=== PATIENT | female | born 1985 | race American Indian/Alaskan Native ===

== ENCOUNTER 2016-06-06 14:40 | Emergency (ER) | payer SELFPAY ==
[2016-06-06 16:02] VITALS: BP 118/76
== END 2016-06-06 18:30 | disposition left against medical advice (07) ==
LOC: ED 14:40
DX: L29.9 Pruritus, unspecified (principal); Z53.21 Procedure and treatment not carried out due to patient leaving prior to being seen by health care provider

== ENCOUNTER 2016-12-11 09:58 | Outpatient (CLI) | payer MEDICAID ==
--- NOTE | 2016-12-12 10:59 | Magnetic Resonance Report ---
MRI PELVIS WITHOUTAND WITH CONTRAST: 12/11/16 09:58:00 CLINICAL: Leiomyoma. COMPARISON :None. TECHNIQUE: Sagittal, coronal and axial T1 and T2 fat sat sequences plus sagittal, coronal and axial postcontrast T1 fat sequences on a 1.5 Jael magnet. 15 cc of Multihance was injected intravenously for contrast portion of exam the consent was obtained prior to the administration of contrast. Postcontrast scans were obtained at 60 seconds, 90 seconds, 120 seconds and 150 seconds. FINDINGS: Normal uterine contour, size and signal. No uterine mass or fibroid identified.The uterus measures 8.5 x 4.1 x 5.2 cm. The endometrium is normal and measures 4.8 mmAP thickness. Normal ovaries with a dominant 2.7 cm follicle of the left ovary. Small follicles in the right ovary.The right ovary measures 2.4 x 1.9 x 2.0 cm. The left ovary measures 3.3 x 2.7 x 2.7 cm. No adnexal mass. No free fluid. Normal urinary bladder and rectum. Normal bones and soft tissues. IMPRESSION: 1. Normal uterus and endometrium with no uterine fibroids identified. 2. Normal ovaries.
== END 2016-12-11 09:59 | disposition home or self-care (01) ==
LOC: SPVIMAG 09:58
PROVIDERS: ATTEND Radiology Diagnostic Radiology
DX: D25.1 Intramural leiomyoma of uterus (principal)
CPT/HCPCS: 72197; A9577

== ENCOUNTER 2018-06-11 21:26 | Emergency (ER) | payer MEDICAID ==
[2018-06-11] MEDS ORDERED: DUONEB *Not for PRN Use IH ONE ×2 (22:04→22:13)
[2018-06-11 22:13] VITALS: BP 139/76
--- NOTE | 2018-06-11 22:57 | XRay Report ---
FINAL REPORT EXAM: XR CHEST ROUTINE 2V HISTORY: cough and fever TECHNIQUE: Two view chest PA and lateral PRIORS: None. FINDINGS: Cardiac and mediastinal contours are unremarkable. No focal pulmonary infiltrate is identified. No pleural fluid collection seen. Pulmonary vasculature is unremarkable. IMPRESSION: Negative two-view chest
--- NOTE | 2018-06-12 00:47 | Emergency Department Report ---
- General Chief Complaint: Adult Asthma Stated Complaint: COUGH, CHEST PAIN Time Seen by Provider: 06/12/18 00:29 Source: patient Mode of arrival: Ambulatory Limitations: No Limitations - History of Present Illness MD Complaint: fever, cough -: days(s) (2) Severity: mild Consistency: constant Improves With: nothing Worsens With: nothing Associated Symptoms: fever, cough, chest pain (with cough) - Related Data Previous Rx's Medication Instructions Recorded Last Taken Type Amoxicillin 500 mg PO TID 10 Days #30 capsule 03/13/18 Unknown Rx Dexamethasone [Decadron] 4 mg PO Q12H 3 Days #6 tablet 03/13/18 Unknown Rx Ibuprofen 800 mg PO TID PRN #30 tablet 03/13/18 Unknown Rx ALBUTEROL Inhaler(NF) [VENTOLIN 1 puff IH Q4HR PRN #1 inha 06/12/18 Unknown Rx Inhaler(NF)] Benzonatate [Tessalon Perles] 100 mg PO Q8HR PRN #20 capsule 06/12/18 Unknown Rx Naproxen [Naprosyn] 500 mg PO BID #20 tablet 06/12/18 Unknown Rx predniSONE [Prednisone] 50 mg PO DAILY #5 tablet 06/12/18 Unknown Rx Allergies Allergy/AdvReac Type Severity Reaction Status Date / Time No Known Allergies Allergy Verified 03/13/18 00:45 ED Review of Systems ROS: Stated complaint: COUGH, CHEST PAIN Other details as noted in HPI Comment: All other systems reviewed and negative Constitutional: fever Respiratory: cough, wheezing Cardiovascular: chest pain (with cough) ED Past Medical Hx - Past Medical History Hx Asthma: Yes Additional medical history: Obesity - Surgical History Past Surgical History?: No - Social History Smoking Status: Never Smoker Substance Use Type: None - Medications Home Medications: Home Medications Medication Instructions Recorded Confirmed Last Taken Type Amoxicillin 500 mg PO TID 10 Days #30 capsule 03/13/18 Unknown Rx Dexamethasone [Decadron] 4 mg PO Q12H 3 Days #6 tablet 03/13/18 Unknown Rx Ibuprofen 800 mg PO TID PRN #30 tablet 03/13/18 Unknown Rx ALBUTEROL Inhaler(NF) [VENTOLIN 1 puff IH Q4HR PRN #1 inha 06/12/18 Unknown Rx Inhaler(NF)] Benzonatate [Tessalon Perles] 100 mg PO Q8HR PRN #20 capsule 06/12/18 Unknown Rx Naproxen [Naprosyn] 500 mg PO BID #20 tablet 06/12/18 Unknown Rx predniSONE [Prednisone] 50 mg PO DAILY #5 tablet 06/12/18 Unknown Rx ED Physical Exam - General Limitations: No Limitations General appearance: alert, in no apparent distress - Head Head exam: Present: atraumatic, normocephalic - Eye Eye exam: Present: normal appearance - ENT ENT exam: Present: mucous membranes moist - Neck Neck exam: Present: normal inspection - Respiratory Respiratory exam: Present: normal lung sounds bilaterally, chest wall tenderness. Absent: respiratory distress, wheezes - Cardiovascular Cardiovascular Exam: Present: regular rate, normal rhythm - GI/Abdominal GI/Abdominal exam: Present: soft. Absent: distended, tenderness - Extremities Exam Extremities exam: Present: normal inspection - Neurological Exam Neurological exam: Present: alert, oriented X3 - Psychiatric Psychiatric exam: Present: normal affect, normal mood - Skin Skin exam: Present: warm, dry, intact, normal color. Absent: rash ED Course Vital Signs 06/11/18 06/12/18 22:09 00:59 Temperature 99.2 F Pulse Rate 84 Respiratory 18 18 Rate Blood Pressure 139/76 O2 Sat by Pulse 99 Oximetry ED Medical Decision Making - EKG Data -: EKG Interpreted by [facility] EKG shows normal: sinus rhythm, axis, intervals, QRS complexes, ST-T waves Rate: normal - EKG Data Interpretation: no acute changes - Radiology Data Radiology results: report reviewed, image reviewed - Differential Diagnosis asthma, URI, pneumonia Critical care attestation.: If time is entered above; I have spent that time in minutes in the direct care of this critically ill patient, excluding procedure time. ED Disposition Clinical Impression: URI (upper respiratory infection) Disposition: DC-01 TO HOME OR SELFCARE Is pt being admited?: No Condition: Stable Instructions: Upper Respiratory Infection (ED) Prescriptions: ALBUTEROL Inhaler(NF) [VENTOLIN Inhaler(NF)] 1 puff IH Q4HR PRN #1 inha PRN Reason: Wheezing Benzonatate [Tessalon Perles] 100 mg PO Q8HR PRN #20 capsule PRN Reason: Cough Naproxen [Naprosyn] 500 mg PO BID #20 tablet predniSONE [Prednisone] 50 mg PO DAILY #5 tablet Referrals: CARRIE YUEN MD [Primary Care Provider] - 3-5 Days [facility] [Provider Group] - 3-5 Days Time of Disposition: 00:47
== END 2018-06-12 01:02 | disposition home or self-care (01) ==
LOC: ED 21:26
DX: J06.9 Acute upper respiratory infection, unspecified (principal); J45.909 Unspecified asthma, uncomplicated; E66.9 Obesity, unspecified
CPT/HCPCS: 71046; 93005; 93010; 94640

== ENCOUNTER 2019-04-09 17:56 | Emergency (ER) | payer MEDICAID ==
--- NOTE | 2019-04-09 18:50 | Event Note ---
ED Screening Note ED Screening Note: c/o dry cough, wheezing that began this morning +itchy, dry throat states she does not have her asthma medications, states she ran out This initial assessment/diagnostic orders/clinical plan/treatment(s) is/are subject to change based on patients health status, clinical progression and re- assessment by fellow clinical providers in the ED. Further treatment and workup at subsequent clinical providers discretion. Patient/guardian urged not to elope from the ED as their condition may be serious if not clinically assessed and managed.
[2019-04-09] MEDS ORDERED: IPRATROPIUM/ALBUTEROL SULFATE 3 ML AMPUL.NEB IH ONE (20:33)
--- NOTE | 2019-04-09 20:34 | Emergency Department Report ---
ED General Adult HPI - General Chief complaint: Dyspnea/Respdistress Stated complaint: COUGH WHEEZING CHEST TIGHTNESS Time Seen by Provider: 04/09/19 18:48 Source: patient Mode of arrival: Ambulatory Limitations: No Limitations - History of Present Illness Initial comments: 43-year-old -[place] female patient with history of asthma presents with complaints of chest tightness, cough, and wheezing starting this morning. Patient states this feels like her asthma and that she has been out of her inhaler for a couple of weeks. She denies any chest pain, leg pain/swelling, recent long travel, history of DVT/PE, hormone therapy, or recent surgeries. Patient states cough is dry and nonproductive and she denies any fevers/chills/sweats or history of pneumonia. -: Sudden - Related Data Previous Rx's Medication Instructions Recorded Last Taken Type Amoxicillin 500 mg PO TID 10 Days #30 capsule 03/13/18 Unknown Rx Ibuprofen 800 mg PO TID PRN #30 tablet 03/13/18 Unknown Rx dexAMETHasone [Decadron] 4 mg PO Q12H 3 Days #6 tablet 03/13/18 Unknown Rx ALBUTEROL Inhaler(NF) [VENTOLIN 1 puff IH Q4HR PRN #1 inha 06/12/18 Unknown Rx Inhaler(NF)] Benzonatate [Tessalon Perles] 100 mg PO Q8HR PRN #20 capsule 06/12/18 Unknown Rx Naproxen [Naprosyn] 500 mg PO BID #20 tablet 06/12/18 Unknown Rx predniSONE [Prednisone] 50 mg PO DAILY #5 tablet 06/12/18 Unknown Rx ALBUTEROL Inhaler (OR & NICU) 2 puff IH QID PRN #8.5 gram 04/09/19 Unknown Rx [ProAir HFA Inhaler] predniSONE [Deltasone] 20 mg PO BID 2 Days #4 tab 04/09/19 Unknown Rx Allergies Allergy/AdvReac Type Severity Reaction Status Date / Time No Known Allergies Allergy Verified 03/13/18 00:45 ED Review of Systems ROS: Stated complaint: COUGH WHEEZING CHEST TIGHTNESS Other details as noted in HPI Comment: All other systems reviewed and negative Respiratory: see HPI ED Past Medical Hx - Past Medical History Hx Asthma: Yes Additional medical history: Obesity - Surgical History Past Surgical History?: No - Social History Smoking Status: Never Smoker Substance Use Type: Alcohol, Prescribed - Medications Home Medications: Home Medications Medication Instructions Recorded Confirmed Last Taken Type Amoxicillin 500 mg PO TID 10 Days #30 capsule 03/13/18 Unknown Rx Ibuprofen 800 mg PO TID PRN #30 tablet 03/13/18 Unknown Rx dexAMETHasone [Decadron] 4 mg PO Q12H 3 Days #6 tablet 03/13/18 Unknown Rx ALBUTEROL Inhaler(NF) [VENTOLIN 1 puff IH Q4HR PRN #1 inha 06/12/18 Unknown Rx Inhaler(NF)] Benzonatate [Tessalon Perles] 100 mg PO Q8HR PRN #20 capsule 06/12/18 Unknown Rx Naproxen [Naprosyn] 500 mg PO BID #20 tablet 06/12/18 Unknown Rx predniSONE [Prednisone] 50 mg PO DAILY #5 tablet 06/12/18 Unknown Rx ALBUTEROL Inhaler (OR & NICU) 2 puff IH QID PRN #8.5 gram 04/09/19 Unknown Rx [ProAir HFA Inhaler] predniSONE [Deltasone] 20 mg PO BID 2 Days #4 tab 04/09/19 Unknown Rx ED Physical Exam - General Limitations: No Limitations General appearance: alert, in no apparent distress - Head Head exam: Present: atraumatic, normocephalic - Eye Eye exam: Present: normal appearance. Absent: scleral icterus - Neck Neck exam: Present: normal inspection, full ROM. Absent: tenderness - Respiratory Respiratory exam: Present: normal lung sounds bilaterally, wheezes (mild bilaterally). Absent: respiratory distress, rales, rhonchi, stridor, chest wall tenderness, accessory muscle use - Cardiovascular Cardiovascular Exam: Present: regular rate, normal rhythm. Absent: systolic murmur, diastolic murmur, rubs, gallop - GI/Abdominal GI/Abdominal exam: Present: soft, normal bowel sounds. Absent: tenderness - Extremities Exam Extremities exam: Absent: pedal edema, joint swelling, calf tenderness - Neurological Exam Neurological exam: Present: alert, oriented X3 - Psychiatric Psychiatric exam: Present: normal affect, normal mood ED Course Vital Signs 04/09/19 04/09/19 18:02 21:00 Temperature 98.7 F Pulse Rate 95 H Pulse Rate [ 91 H Bilateral Throughout] Respiratory 19 Rate Respiratory 18 Rate [Bilateral Throughout] Blood Pressure 114/75 O2 Sat by Pulse 98 Oximetry ED Medical Decision Making - Medical Decision Making 33-year-old female patient here with complaints of asthma exacerbation today. She states this does feel like her normal asthma and that she has an out of her inhaler for a couple weeks. Patient given 1 treatment of DuoNeb and states that her symptoms have completely resolved. Will discharge home with albuterol refill and primary care follow-up. Discussed very strict return precautions in detail with patient who states understanding. Critical care attestation.: If time is entered above; I have spent that time in minutes in the direct care of this critically ill patient, excluding procedure time. ED Disposition Clinical Impression: Asthma exacerbation Qualifiers: Asthma severity: mild Asthma persistence: intermittent Qualified Code(s): J45.21 - Mild intermittent asthma with (acute) exacerbation Disposition: TO HOME OR SELFCARE Is pt being admited?: No Condition: Stable Instructions: Asthma (ED) Prescriptions: predniSONE [Deltasone] 20 mg PO BID 2 Days #4 tab ALBUTEROL Inhaler (OR & NICU) [ProAir HFA Inhaler] 2 puff IH QID PRN #8.5 gram PRN Reason: Shortness Of Breath Referrals: MADAN HOLT MD [Referring] - 3-5 Days
[2019-04-10 01:24] VITALS: BP 135/82
== END 2019-04-09 22:55 | disposition home or self-care (01) ==
LOC: ED 17:56
DX: J45.21 Mild intermittent asthma with (acute) exacerbation (principal); Z79.899 Other long term (current) drug therapy
CPT/HCPCS: 94640; 94644; 99282

== ENCOUNTER 2019-05-23 13:31 | Emergency (ER) | payer MEDICAID ==
[2019-05-23 13:36] VITALS: BP 122/76
--- NOTE | 2019-05-23 13:36 | Emergency Department Report ---
Blank Doc - Documentation Documentation: 33-year-old female that presents with n/v and abdominal pain. This initial assessment/diagnostic orders/clinical plan/treatment(s) is/are subject to change based on patient's health status, clinical progression and re- assessment by fellow clinical providers in the ED. Further treatment and workup at subsequent clinical providers discretion. Patient/guardians urged not to elope from the ED as their condition may be serious if not clinically assessed and managed. Initial orders include: 1- Patient sent to [facility] for further evaluation and treatment 2- labs 3- UA
[2019-05-23 14:24] LABS: Basophils % (Auto) 0.4 % (0.0-1.8); Eosinophils % (Auto) 0.6 % (0.0-4.3); Hematocrit 35.9 % (30.3-42.9); Hemoglobin 11.8 gm/dl (10.1-14.3); Lymphocytes # (Auto) 2.7 K/mm3 (1.2-5.4); Lymphocytes % (Auto) 44.3 % (13.4-35.0); Mean Corpuscular HGB Conc 33 % (30-34); Mean Corpuscular Volume 86 fl (79-97); Monocytes # (Auto) 0.5 K/mm3 (0.0-0.8); Monocytes % (Auto) 7.8 % (0.0-7.3); Platelet Count 282 K/mm3 (140-440); Red Blood Count 4.18 M/mm3 (3.65-5.03); Red Cell Distribution Width 14.4 % (13.2-15.2)
[2019-05-23 14:42] LABS: Alanine Aminotransferase 12 units/L (7-56); Albumin 3.5 g/dL (3.9-5); BUN/Creatinine Ratio 16; Blood Urea Nitrogen 8 mg/dL (7-17); Calcium 8.9 mg/dL (8.4-10.2); Hemolysis Index 8
--- NOTE | 2019-05-23 18:44 | Emergency Department Report ---
HPI - General Chief Complaint: Abdominal Pain Time Seen by Provider: 05/23/19 13:35 - HPI HPI: 33-year-old female presents to the emergency department with a complaint of a 2-3 day history of some lower abdominal cramping as well as some nausea and vomiting. She denies any past medical history. She has not taken anything for her symptoms prior to presentation. By the time my shift had started the patient has already had some blood work completed that shows the patient to be . Patient admits that her last menstrual cycle was in February. She does not have any [employer] [facility]. She denies any vaginal bleeding. ED Past Medical Hx - Past Medical History Previous Medical History?: No Hx Asthma: Yes Additional medical history: Obesity - Surgical History Past Surgical History?: No - Social History Smoking Status: Never Smoker Substance Use Type: None - Medications Home Medications: Home Medications Medication Instructions Recorded Confirmed Last Taken Type Amoxicillin 500 mg PO TID 10 Days #30 capsule 03/13/18 Unknown Rx Ibuprofen 800 mg PO TID PRN #30 tablet 03/13/18 Unknown Rx dexAMETHasone [Decadron] 4 mg PO Q12H 3 Days #6 tablet 03/13/18 Unknown Rx ALBUTEROL Inhaler(NF) [VENTOLIN 1 puff IH Q4HR PRN #1 inha 06/12/18 Unknown Rx Inhaler(NF)] Benzonatate [Tessalon Perles] 100 mg PO Q8HR PRN #20 capsule 06/12/18 Unknown Rx Naproxen [Naprosyn] 500 mg PO BID #20 tablet 06/12/18 Unknown Rx predniSONE [Prednisone] 50 mg PO DAILY #5 tablet 06/12/18 Unknown Rx ALBUTEROL Inhaler (OR & NICU) 2 puff IH QID PRN #8.5 gram 04/09/19 Unknown Rx [ProAir HFA Inhaler] predniSONE [Deltasone] 20 mg PO BID 2 Days #4 tab 04/09/19 Unknown Rx Ondansetron [Zofran Odt] 4 mg PO Q8HR PRN #15 tab.rapdis 05/23/19 Unknown Rx Vit-Fe Fumar-FA [ 1 tab PO QDAY #30 tablet 05/23/19 Unknown Rx Vitamin] ED Review of Systems ROS: Stated complaint: NAUSEA/VOMITING/STOMACH PAIN Other details as noted in HPI Comment: All other systems reviewed and negative Constitutional: denies: chills, fever Gastrointestinal: abdominal pain, nausea, vomiting Genitourinary: denies: dysuria, hematuria Musculoskeletal: denies: back pain, arthralgia Neurological: denies: headache Physical Exam - Physical Exam Vital Signs: Vital Signs 05/23/19 13:34 Temperature 97.8 F Pulse Rate 83 Respiratory 18 Rate Blood Pressure 122/76 O2 Sat by Pulse 100 Oximetry Physical Exam: GENERAL: The patient is well-developed well-nourished. HEENT: Normocephalic. Atraumatic. Patient has moist mucous membranes. EYES: Extraocular motions are intact. NECK: Supple. Trachea is midline. CHEST/LUNGS: Clear to auscultation. There is no respiratory distress noted. HEART/CARDIOVASCULAR: Regular. There is no tachycardia. There is no murmur. ABDOMEN: Abdomen is soft, nontender. Patient has normal bowel sounds. There is no abdominal distention. SKIN:Skin is warm and dry. . NEURO: The patient is awake, alert, and oriented. The patient is cooperative. The patient has no focal neurologic deficits. Normal speech. MUSCULOSKELETAL: There is no tenderness or deformity. There is no evidence of acute injury. ED Course Vital Signs 05/23/19 13:34 Temperature 97.8 F Pulse Rate 83 Respiratory 18 Rate Blood Pressure 122/76 O2 Sat by Pulse 100 Oximetry ED Medical Decision Making - Lab Data Result diagrams: 05/23/19 13:58 05/23/19 13:58 - Radiology Data Radiology results: report reviewed TRANSABDOMINAL AND TRANSVAGINAL OB PELVIC ULTRASOUND INDICATION / CLINICAL INFORMATION: with abdominal and pelvic pain for 3 days.. COMPARISON: None available. FINDINGS: Transabdominal: The uterus and ovaries are normal in appearance. I see no evidence of an intrauterine . No extraovarian mass or free fluid is seen. Images of the urinary bladder are normal. Transvaginal: The endometrial cavity is empty. A normal right ovary is present. The left ovary is not seen. There is no evidence of adnexal mass or free fluid. IMPRESSION: Negative study. No evidence of intrauterine or extrauterine . - Medical Decision Making This patient presents to the emergency department with a 2-3 day history of some nausea and vomiting, lower abdominal and pelvic cramping. Initially the patient's qualitative test came back positive. She was sent for a transvaginal/obstetrical ultrasound came back showing no evidence of intrauterine or extrauterine . Her quantitative beta hCG later came back at 317. The patient says that her last menstrual cycle was in February. Overall this appears concerning for a miscarriage. However, there is still the potential that this is an extremely early . The patient has not had any further nausea and vomiting while in the emergency department. She'll be discharged home to follow up with [facility] [employer] [facility] for a repeat beta hCG. She has been placed on vitamins and given some antinausea medication. She will return to the emergency Department with any worsening of her symptoms or any acute distress. - Differential Diagnosis , threatened miscarriage, spontaneous miscarriage, fibroids Critical Care Time: No Critical care attestation.: If time is entered above; I have spent that time in minutes in the direct care of this critically ill patient, excluding procedure time. ED Disposition Clinical Impression: Threatened miscarriage, Pelvic cramping Nausea & vomiting Qualifiers: Vomiting type: unspecified Vomiting Intractability: non-intractable Qualified Code(s): R11.2 - Nausea with vomiting, unspecified Disposition: DC-01 TO HOME OR SELFCARE Is pt being admited?: No Condition: Stable Instructions: Threatened Miscarriage (ED), Acute Nausea and Vomiting (ED) Additional Instructions: Your hormone today was about 300. This is either a very early or has been a miscarriage. Please follow up with a [employer]IC [employer] OPERATOR for a repeat hormone level and further evaluation of her symptoms. Return to the emergency Department with any worsening of your symptoms or any acute distress. Prescriptions: Vit-Fe Fumar-FA [ Vitamin] 1 tab PO QDAY #30 tablet Ondansetron [Zofran Odt] 4 mg PO Q8HR PRN #15 tab.rapdis PRN Reason: Nausea Referrals: PRIMARY CARE [Primary Care Provider] - 3-5 Days [facility] [Provider Group] - 3-5 Days [facility] [Provider Group] - 3-5 Days Time of Disposition: 22:48
[2019-05-23 18:49] LABS: Bacteria,Urine 1+ /HPF (Negative); Bilirubin,Urine NEG (Negative); Blood,Urine SM (Negative); Color,Urine Yellow (Yellow); Mucus,Urine 1+ /HPF; Protein,Urine <15 mg/dL mg/dL (Negative)
--- NOTE | 2019-05-23 22:32 | Ultrasound Report ---
TRANSABDOMINAL AND TRANSVAGINAL OB PELVIC ULTRASOUND INDICATION / CLINICAL INFORMATION: with abdominal and pelvic pain for 3 days.. COMPARISON: None available. FINDINGS: Transabdominal: The uterus and ovaries are normal in appearance. I see no evidence of an intrauterine . No extraovarian mass or free fluid is seen. Images of the urinary bladder are normal. Transvaginal: The endometrial cavity is empty. A normal right ovary is present. The left ovary is not seen. There is no evidence of adnexal mass or free fluid. IMPRESSION: Negative study. No evidence of intrauterine or extrauterine . Signer Name: Saleem Zurita MD Signed: 05/23/2019 10:28 PM Workstation Name: [id number]
== END 2019-05-23 23:10 | disposition home or self-care (01) ==
LOC: ED 13:31
DX: O20.0 Threatened abortion (principal); Z3A.10 10 weeks gestation of pregnancy
CPT/HCPCS: 36415; 76801; 76817; 80053; 81001; 83690; 84702; 84703; 85025; 99284